=== PATIENT | male | born 1935 | race Caucasian/White ===

== ENCOUNTER → 2017-01-30 | Outpatient (CLI) | payer OTHER | LOC: BHLMT 15:30 | PROVIDERS: ATTEND Internal Medicine Interventional Cardiology | DX: I49.3 Ventricular premature depolarization (principal) | CPT/HCPCS: 93225-PO; 93226-PO ==

== ENCOUNTER → 2017-03-06 | Outpatient (CLI) | payer OTHER | LOC: BHLMT 15:30 | PROVIDERS: ATTEND Internal Medicine Cardiovascular Disease | DX: I25.10 Atherosclerotic heart disease of native coronary artery without angina pectoris (principal); I10 Essential (primary) hypertension; R00.2 Palpitations | CPT/HCPCS: 93306-PO ==

== ENCOUNTER → 2017-09-24 | Outpatient (CLI) | payer OTHER ==
[~2017-09-24] MED LIST: GADOBUTROL 10 ML VIAL IVP ONE
== END ==
LOC: FIMAGING 08:15
PROVIDERS: ATTEND Physician Assistant
DX: M51.36 Other intervertebral disc degeneration, lumbar region (principal); M47.896 Other spondylosis, lumbar region; M48.061 Spinal stenosis, lumbar region without neurogenic claudication; M99.73 Connective tissue and disc stenosis of intervertebral foramina of lumbar region; Z98.1 Arthrodesis status
CPT/HCPCS: 72158; A9585; 82565-PO

== ENCOUNTER 2017-12-05 08:15 | Day surgery (SDC) | payer OTHER ==
[2017-12-05] MEDS ORDERED: LIDOCAINE 1% 300 MG/30 ML SDV SC ONE (08:25)
--- NOTE | 2017-12-05 11:07 | CPIP ---
DATE OF PROCEDURE: 12/05/2017 PROCEDURE PERFORMED: Implantation of a [employer] LINQ loop recorder. INDICATION FOR PROCEDURE: Surveillance for occult atrial fibrillation in the setting of a recent rig ht-sided MCA territory embolic CVA. DETAILS OF PROCEDURE: The 4th intercostal space was marked just to the left of the sternum with an i ntelligible marker. The chest was then prepped and draped in sterile fashion. Local anesthesia cons isted of 1% lidocaine. A small incision was made and the [employer] LINQ loop recorder was inserted s ubcutaneously. The incision was closed with 3 sierra. COMPLICATIONS: None. CONCLUSION: Uneventful implantation of a [employer] LINQ loop recorder. /[id number]
== END 2017-12-05 10:49 | disposition home or self-care (01) ==
LOC: FCATH 08:15
PROVIDERS: ATTEND Internal Medicine Interventional Cardiology
PROC: 0JH63PZ Insertion of Cardiac Rhythm Related Device into Chest Subcutaneous Tissue and Fascia, Percutaneous Approach (ICD-10-PCS; principal; 2017-12-05)
DX: I49.3 Ventricular premature depolarization (principal); I69.354 Hemiplegia and hemiparesis following cerebral infarction affecting left non-dominant side; I25.10 Atherosclerotic heart disease of native coronary artery without angina pectoris; I10 Essential (primary) hypertension; Z95.5 Presence of coronary angioplasty implant and graft
CPT/HCPCS: C1764